=== PATIENT | male | born 1960 | race Caucasian/White ===

== ENCOUNTER → 2023-07-10 | Day surgery (SDC) | payer BC ==
[~2023-07-10] MED LIST: Dextrose 5%-0.45% NaCl 1,000 ML IV SCH; Midazolam 1 MG/ML 2 ML SDV IV ONE; Midazolam 1 MG/ML 2 ML SDV ONE; fentaNYL 100 MCG/2 ML SDV IV ONE; fentaNYL 100 MCG/2 ML SDV ONE
== END | disposition home or self-care (01) ==
LOC: DL.ENDO 05:53
PROVIDERS: ATTEND Internal Medicine Gastroenterology
DX: R12 Heartburn (principal); E11.9 Type 2 diabetes mellitus without complications; I10 Essential (primary) hypertension; E78.5 Hyperlipidemia, unspecified; K21.9 Gastro-esophageal reflux disease without esophagitis; E66.09 Other obesity due to excess calories; Z68.30 Body mass index [BMI] 30.0-30.9, adult; F17.210 Nicotine dependence, cigarettes, uncomplicated; Z79.899 Other long term (current) drug therapy
CPT/HCPCS: 87077; J2250; J3010; J7042

== ENCOUNTER 2023-07-31 05:23 | Day surgery (SDC) | payer BC ==
[2023-07-31] MEDS ORDERED: Dextrose 5%-0.45% NaCl 1,000 ML IV SCH (05:30)
[2023-07-31] MEDS ORDERED: Midazolam 1 MG/ML 2 ML SDV ONE (05:58)
[2023-07-31] MEDS ORDERED: fentaNYL 100 MCG/2 ML SDV ONE (05:58)
[2023-07-31] MEDS ORDERED: fentaNYL 100 MCG/2 ML SDV IV ONE ×2 (06:26→06:27)
[2023-07-31] MEDS ORDERED: Midazolam 1 MG/ML 2 ML SDV IV ONE ×6 (06:27→06:37)
== END 2023-07-31 08:03 | disposition home or self-care (01) ==
LOC: DL.ENDO 05:23
PROVIDERS: ATTEND Internal Medicine Gastroenterology
DX: Z12.11 Encounter for screening for malignant neoplasm of colon (principal); I10 Essential (primary) hypertension; E11.9 Type 2 diabetes mellitus without complications; E78.5 Hyperlipidemia, unspecified; Z79.899 Other long term (current) drug therapy
CPT/HCPCS: 45378; J2250; J3010; J7042